=== PATIENT | male | born 1970 | race Caucasian/White ===

== ENCOUNTER 2024-05-07 08:24 | Day surgery (SDC) | payer MEDICAID, SELFPAY ==
[2024-04-17 11:18] VITALS: BMI 27.2
[2024-05-07 09:11] VITALS: BP 120/77; PULSE 87; RESP 18; TEMP 36.3; O2SAT 98
[2024-05-07] MEDS: LACTATED RINGERS 1000ML 1,000 ML 50 ML IV (09:59)
--- NOTE | 2024-05-07 10:05 | EXP.ANES.CKL ---
[facility] Disclaimer: The information contained in this section may have been updated after the patient was seen, as this information can be updated by other users. Medical History Asthma Psoriasis Irritable bowel syndrome (IBS) History of gastroesophageal reflux (GERD) Hyperlipidemia Hypertension ADHD Crohn's disease Surgical History H/O wrist surgery H/O shoulder surgery Family History Other Family history of cancer Family history of diabetes mellitus type II Family history of myocardial infarction Social History Smoking Status: Former smoker alcohol intake: current substance use type: denies use current occupational status: retired Travel in the last 8 weeks: None caffeine: No Have you lived/traveled outside US in past 30 days?: No Contact w/someone who lives/traveled outside US past 30 days?: No Exposure to someone with infectious disease in past 14 days?: No Do you have a fever (greater than 100.4 F or 38 C)?: No Have you tested positive for COVID-19: No Exposed to someone with COVID-19 in past 14 days?: No Do you have a sore throat?: No Do you have a cough?: No Do you have any weakness?: No Are you experiencing any nausea/vomitting?: No Do you have any diarrhea?: No Are you experiencing any unusual bleeding?: No Do you have any muscle aches/pain?: No Do you have any abdominal pain?: No Are you experiencing loss of taste or smell?: No [facility] Anesthesia Checklist Patient Identification Patient Identification: Arm Band Structural Data Admitted From: Home Planned Operative Procedure/s: Colonoscopy Consent for Planned Operative Procedure(s) Verified: Yes Verified Documents: Surgical Consent and History and Physical NPO Status Verified Time NPO: 00:00 Additional verifications Anesthesia Reactions: No Airway Assessment Mallampati Score:: Class II C-Spine Mobility Assessed: Yes TMJ Mobility Assessed: Yes Dentition: Good Dentition Neurological Assessment Level of Consciousness: Awake, Alert and Appropriate Anesthesia Plan Anesthesia Risk discussed: Yes Anesthesia Plan: Verified ASA Class: II Anesthesia Type: MAC
[2024-05-07 10:29] VITALS: O2SAT 100
--- NOTE | 2024-05-07 10:32 | P.HP_ITS ---
History of Present Illness *Admission Date: 05/07/24 *Reason for visit:: Diarrhea/urgency/left lower quadrant abdominal pain *History of present illness: Mr. Tavarez is a 54-year-old gentleman who is here for diagnostic colonoscopy secondary to diarrhea/urgency and left lower quadrant abdominal pain. The examination is deemed medically necessary for diagnostic colonoscopy. The patient has been seen, interviewed and examined prior to the procedure by both myself and the anesthesia provider. [facility] Disclaimer: The information contained in this section may have been updated after the patient was seen, as this information can be updated by other users. Medical History Asthma Psoriasis Irritable bowel syndrome (IBS) History of gastroesophageal reflux (GERD) Hyperlipidemia Hypertension ADHD Crohn's disease Surgical History H/O wrist surgery H/O shoulder surgery Family History Other Family history of cancer Family history of diabetes mellitus type II Family history of myocardial infarction Social History Smoking Status: Former smoker alcohol intake: current substance use type: denies use current occupational status: retired Travel in the last 8 weeks: None caffeine: No Have you lived/traveled outside US in past 30 days?: No Contact w/someone who lives/traveled outside US past 30 days?: No Exposure to someone with infectious disease in past 14 days?: No Do you have a fever (greater than 100.4 F or 38 C)?: No Have you tested positive for COVID-19: No Exposed to someone with COVID-19 in past 14 days?: No Do you have a sore throat?: No Do you have a cough?: No Do you have any weakness?: No Are you experiencing any nausea/vomitting?: No Do you have any diarrhea?: No Are you experiencing any unusual bleeding?: No Do you have any muscle aches/pain?: No Do you have any abdominal pain?: No Are you experiencing loss of taste or smell?: No Review of Systems Review of Systems Review of systems (narrative): Negative *Cardiovascular Comments: Negative *Gastrointestinal Comments: Negative *Genitourinary Comments: Negative *Musculoskeletal Comments: Negative *Neurologic Comments: Negative Meds Home Medications and Allergies Home Medications ?Medication ?Instructions ?Recorded ?Confirmed ?Type lisdexamfetamine 30 mg capsule 30 mg PO DAILY 03/04/24 05/07/24 History (Vyvanse) lisinopril 20 mg tablet (Zestril) 20 mg PO DAILY 03/04/24 05/07/24 History montelukast 10 mg tablet 10 mg PO DAILY 03/04/24 05/07/24 History (Singulair) rosuvastatin 20 mg tablet (Crestor) 20 mg PO DAILY 03/04/24 05/07/24 History fluoxetine 20 mg tablet 20 mg PO DAILY 04/17/24 05/07/24 History New Prescriptions to Start Prescriptions: Allergies Allergy/AdvReac Type Severity Reaction Status Date / Time No Known Allergies Allergy Verified 04/17/24 11:13 Exam Data for Last 24 hours Vital signs and Labs for Last 24 Hours: Temp Pulse Resp BP Pulse Ox O2 Del Method O2 Flow Rate 97.4 F L 87 18 120/77 98 Nasal Cannula 5 05/07/24 09:11 05/07/24 09:11 05/07/24 09:11 05/07/24 09:11 05/07/24 09:11 05/07/24 10:29 05/07/24 10:29 *Routine HEENT Exam Head: Present normocephalic Eye: Present EOMI and PERRL ENT: Present mucous membranes moist *Routine Neck Exam Neck: Present supple *Routine Respiratory Exam Respiratory: Present CTA bilaterally *Routine Cardiovascular Exam Cardiovascular: Present RRR *Routine Abdominal Exam Abdominal: Present soft and normoactive bowel sounds; Absent tenderness *Routine Rectal Exam Rectal:: deferred *Routine Genitalia Exam Genitalia:: deferred *Routine Extremities Exam Extremities: Absent cyanosis, clubbing or edema *Routine Skin Exam Skin: Present warm; Absent rash *Routine Neurological Exam Neurological: Present alert and oriented X3 Assessment and Plan *Assessment and plan (1) Chronic diarrhea: Status: Acute Category: Medical Code(s): K52.9 - Noninfective gastroenteritis and colitis, unspecified (2) Fecal urgency: Status: Acute Category: Medical Code(s): R15.2 - Fecal urgency (3) LLQ abdominal pain: Status: Acute Category: Medical Code(s): R10.32 - Left lower quadrant pain Plan A/P: 1. Diarrhea with fecal urgency and left lower quadrant abdominal pain is the preprocedural diagnosis. The patient will be anesthetized/sedated using MAC sedation. The patient has been seen and examined. Cardiac and lung assessment prior to the examination is stable. Proceed with planned diagnostic colonoscopy
--- NOTE | 2024-05-07 10:34 | HMH.PROCNOTE ---
[facility] Procedure Note Date: 05/07/24 Time: 10:49 Procedure Note:: Colonoscopy Procedure Report: Colonoscopy with cold snare polypectomy and cold biopsies Endoscopist: Major Howe II, MD Referring physician: MARISA Yañez Date of Procedure: May 07, 2024 Equipment: Olympus 190 variable stiffness pediatric colonoscope Sedation: MAC sedation Indication: Mr. Tavarez is a 54-year-old gentleman with chronic diarrhea and bowel urgency and intermittent left lower quadrant abdominal discomfort who is here for diagnostic colonoscopy. He was seen 4-1/2 years ago in [place] (local access clinic) having the pain and blood with his stool. He did a stool test and was told that it was consistent with Crohn's disease (probable fecal calprotectin) and he was placed on Entyvio samples for a month. He has had no further blood with his bowel movements. He has 2-3 loose bowel movements daily. He will occasionally use psyllium husk which helps. He does take Advil 2-3 times a week. He reports no gassiness or bloating. He has no rectal bleeding or mucus with his bowel movements. He reports no family history of colitis, Crohn's disease or colon cancer. This is his first colonoscopy and is performed for diagnostic purposes. Procedure: Prior to the procedure, a history and physical exam was performed, and patient's medications and allergies were reviewed. The risks, benefits and alternatives of the sedation and procedure were discussed with the patient. All questions were answered and informed consent was obtained. The patient was brought to the procedure room. Patient identification and proposed procedure were verified by the physician and the nurse. The patient was placed in a left lateral decubitus position and the scope was passed under direct vision. Throughout the procedure, the patient's blood pressure, pulse, and oxygen saturations were monitored continuously. The colonoscopy was accomplished without difficulty. The patient tolerated the procedure well. Findings: On digital rectal examination there was normal rectal tone. There were no external hemorrhoids. The prostate was 2+, smooth, soft, symmetric without nodules. The colonoscope was introduced through the anal canal to the rectum and advanced to the cecum. The ileocecal valve and appendiceal orifice were identified. The scope was advanced a short distance into the ileum which appeared grossly normal. The scope was then withdrawn into the colon. There was a very shallow small superficial ulcer on the ileocecal valve (NSAID ulcer/colopathy) and biopsies were obtained. The remaining cecum, ascending and transverse colon and mucosa were grossly normal. Cold biopsies were taken from the right colon to rule out microscopic colitis. There were 3 polyps (sigmoid x 2 (4 and 5 mm) and rectum x 1 (8 mm)). These were all removed via cold snare polypectomy. There were scattered diverticuli throughout the descending and sigmoid colon (LEFT colon). The rectum itself was normal. Upon retroflexion within the rectum there were grade 2 internal hemorrhoids. The preparation was excellent throughout with Tunas Preparation Score of 9. The cecal time was 12 minutes. Impression: 1. Colonic polyps x 3 2. Left-sided diverticulosis 3. Small and shallow superficial ulceration of ileocecal valve (highly characteristic of NSAID colopathy/ulcer) 4. Grade 2 internal hemorrhoids Plan: I will follow-up the polyp histology and recommend repeat surveillance colonoscopy again in 5 years if the polyps are adenomatous. I will follow-up the biopsies to rule out microscopic colitis. If the biopsies are normal, we may consider using Viberzi for IBS?D. I would encourage psyllium bulking fiber supplementation on a long-term daily maintenance basis.
[2024-05-07 10:51] VITALS: BP 112/73; PULSE 86; RESP 18; TEMP 36.2; O2SAT 97
[2024-05-07 11:01] VITALS: BP 99/47; PULSE 86; RESP 18; O2SAT 98
[2024-05-07 11:11] VITALS: BP 116/61; PULSE 78; RESP 18; O2SAT 98
[2024-05-07 11:24] VITALS: BP 116/66; PULSE 79; O2SAT 98
== END 2024-05-07 11:24 | disposition home or self-care (01) ==
PROVIDERS: PCP Nurse Practitioner Family; Visit Provider Internal Medicine Gastroenterology
PROC: 0DJD8ZZ Inspection of Lower Intestinal Tract, Via Natural or Artificial Opening Endoscopic (ICD-10-PCS; CPT 45378; principal; 2024-05-07 10:00)
DX: K52.9 Noninfective gastroenteritis and colitis, unspecified (principal); R15.2 Fecal urgency; R10.32 Left lower quadrant pain; K63.5 Polyp of colon; K57.30 Diverticulosis of large intestine without perforation or abscess without bleeding; K63.3 Ulcer of intestine
CPT/HCPCS: 45380; 45385; J7120

== ENCOUNTER 2024-09-13 01:34 | Observation (INO) | payer MEDICAID, SELFPAY ==
[2024-09-13] VITALS (11 sets, daily range): BP systolic 111–148; BP diastolic 64–123; PULSE 54–80; RESP 13–23; TEMP 36.6–36.8; O2SAT 94–97; BMI 25.7; BMI 24.3
--- NOTE | 2024-09-13 01:36 | ECG_ITS ---
APPROVED REPORT Exam: Resting ECG HR:64 bpm ECG Measurements Heart Rate 64 AXES OR 145 P 17 QRSd 141 QRS 48 QT 424 T 44 QTc 433 Conclusion SINUS RHYTHM INDETERMINATE AXIS RIGHT BUNDLE BRANCH BLOCK [120+ ms QRS DURATION, UPRIGHT V1, 40+ ms S IN I/aVL/V4/V5/V6] No STEMI Electronically signed by : BLAINE MCKEON, 09/14/2024 03:53:04
--- NOTE | 2024-09-13 01:48 | XR_ITS ---
PROCEDURE INFORMATION: Exam: XR Chest Exam date and time: 09/13/2024 1:55 AM Age: 54 years old Clinical indication: Sternal or substernal pain; Additional info: Chest pain TECHNIQUE: Imaging protocol: Radiologic exam of the chest. Views: 1 view. COMPARISON: No relevant prior studies available. FINDINGS: Lungs: Unremarkable. No consolidation. Pleural spaces: Unremarkable. No pleural effusion. No pneumothorax. Heart/Mediastinum: Unremarkable. No cardiomegaly. Bones/joints: Unremarkable. IMPRESSION: No acute findings.
[2024-09-13 02:00] LABS: Basophils # 0.1 K/mm3 (0-0.2); Basophils % 0.5 % (0.1-2.0); Eosinophils # 0.1 Kmm3 (0.0-0.4); Eosinophils % 0.8 % (0.1-12.0); Hematocrit 42.8 % (42.0-52.0); Hemoglobin 14.5 g/dL (14.1-18.0); Immature Granulocytes # 0.03 10^3uL; Immature Granulocytes % 0.3 %; Lymphocytes # 2.7 K/mm3 (0.7-4.5); Lymphocytes % 23.9 % (10-50); Mean Corpuscular HGB Conc 33.9 g/dL (31.8-35.4); Mean Corpuscular Hemoglobin 30.7 pg (27.0-31.2); Mean Corpuscular Volume 90.7 fl (80-94); Mean Platelet Volume 8.7 fl (7.4-10.4); Monocytes % 8.9 % (1.7-9.3); Neutrophils # 7.3 K/mm3 (1.8-7.8); Neutrophils % 65.6 % (37.0-80.0); Nucleated Red Blood Cells # 0 10^3/uL; Nucleated Red Blood Cells % 0 %; Platelet Count 375 K/mm3 (142-424); Red Blood Count 4.72 M/mm3 (4.60-6.20); Red Cell Distribution Width 12.3 % (11.5-17.5); Red Cell Distribution Width-SD 40.8 fL; White Blood Count 11.1 K/mm3 (4.8-10.8)
[2024-09-13 02:05] LABS: Alanine Aminotransferase 92 U/L (12-78); Albumin Level 4.8 g/dl (3.5-5.0); Albumin/Globulin Ratio 1.7 (1.1-1.8); Alkaline Phosphatase 87 U/L (38-126); Anion Gap 11.6 mEq/L (5-15); Aspartate Amino Transferase 102 U/L (17-59); Blood Urea Nitrogen 16 mg/dl (9-20); Calcium 10.3 mg/dl (8.4-10.2); Carbon Dioxide 28 mmol/L (22.0-30.0); Chloride 98 mmol/L (98-107); Creatinine Clearance Estimated 111 mL/min (50-200); Estimated Glomerular Filt Rate 88 ml/min (>60); GFR (African American) 106 ML/MIN (>60); Globulin 2.8 g/dL (1.3-3.2); Glucose 114 mg/dl (74-100); Potassium 3.6 mmoL/L (3.5-5.1); Sodium 134 mmol/L (136-145); Total Protein,Serum 7.6 g/dl (6.3-8.2)
[2024-09-13] MEDS: NITROGLYCERIN 0.4MG SL TABLET 0.4 MG SL (02:14)
[2024-09-13] MEDS: ASPIRIN 81MG CHEWABLE TABLET 324 MG PO (02:14)
[2024-09-13 02:17] LABS: Troponin I < 0.01 ng/ml (0.00-0.034)
--- NOTE | 2024-09-13 02:21 | HMH.EDCP ---
Discharge Plan Disposition Patient Disposition: Admitted Prescriptions Prescriptions: No Action montelukast [Singulair] 10 mg tablet 10 mg PO DAILY lisinopril [Zestril] 20 mg tablet 20 mg PO DAILY lisdexamfetamine [Vyvanse] 30 mg capsule 30 mg PO DAILY rosuvastatin [Crestor] 20 mg tablet 20 mg PO DAILY dicyclomine 10 mg capsule 10 mg PO TID Qty: 90 12RF Rx Instructions: Please take 1 capsule p.o. 3 times daily fluoxetine 20 mg Tablet 20 mg PO DAILY Referrals Follow up/Referrals: Provider,Referral, [Primary Care Provider, Medical] - See instructions Clinical Impressions Clinical Impression: Chest pain Print Language Print Language: Korean Discharge ED Provider: Cesario Kruse General Chief Complaint: Chest Pain Stated Complaint: Chest Pain Time Seen by Provider: 09/13/24 02:16 Mode of Arrival: Ambulatory Source of Information: Patient Description of Symptoms (Recalled from ER Triage Doc. by RN): pt reports midsternal chest pain that began 3 hours ago,pt reports that it is a burning sensation and feels like pressure. pt reports he thought it was acid reflux and tried to treat it at home with prescribed stomach medicine without relief. History of Present Illness HPI narrative: 54-year-old male presents to the ER complaining of midsternal chest pain beginning approximately 2 to 3 hours prior to arrival. Patient reports a burning sensation that feels tight. He states he thought it was acid reflux and took Gas-X without relief. He also took 2 aspirin prior to arrival. Patient states he recently lost his dad to an HI and his mom had A-fib. He self-reports being a hypochondriac and states he is very worried about something serious potentially happening. Patient denies any vomiting. He has no headache or dizziness, no radiation of pain, no other complaints or concerns. No personal cardiac history. Related Data Home Medications ?Medication ?Instructions ?Recorded ?Confirmed lisdexamfetamine 30 mg capsule 30 mg PO DAILY 03/04/24 05/07/24 (Vyvanse) lisinopril 20 mg tablet (Zestril) 20 mg PO DAILY 03/04/24 05/07/24 montelukast 10 mg tablet 10 mg PO DAILY 03/04/24 05/07/24 (Singulair) rosuvastatin 20 mg tablet (Crestor) 20 mg PO DAILY 03/04/24 05/07/24 fluoxetine 20 mg tablet 20 mg PO DAILY 04/17/24 05/07/24 Previous Rx's ?Medication ?Instructions ?Recorded dicyclomine 10 mg capsule 10 mg PO TID #90 caps 05/12/24 Allergies Allergy/AdvReac Type Severity Reaction Status Date / Time No Known Allergies Allergy Verified 04/17/24 11:13 [facility] Disclaimer: The information contained in this section may have been updated after the patient was seen, as this information can be updated by other users. Medical History (Updated 09/13/24 @ 04:46 by Cesario Kruse MD) Asthma Psoriasis Irritable bowel syndrome (IBS) History of gastroesophageal reflux (GERD) Hyperlipidemia Hypertension ADHD Crohn's disease Surgical History H/O wrist surgery H/O shoulder surgery Family History Other Family history of cancer Family history of diabetes mellitus type II Family history of myocardial infarction Social History Smoking Status: Never smoker alcohol intake: current substance use type: denies use current occupational status: retired Travel in the last 8 weeks?: None caffeine: No Have you lived/traveled outside US in past 30 days?: No Contact w/someone who lives/traveled outside US past 30 days?: No Exposure to someone with infectious disease in past 14 days?: No Do you have a fever (greater than 100.4 F or 38 C)?: No Have you tested positive for COVID-19?: No Exposed to someone with COVID-19 in past 14 days?: No Do you have a sore throat?: No Do you have a cough?: No Do you have any weakness?: No Do you have any diarrhea?: No Are you experiencing any unusual bleeding?: No Do you have any muscle aches/pain?: No Do you have any abdominal pain?: No Are you experiencing loss of taste or smell?: No ROS Obtained: Yes Systems reviewed as appropriate & no additional complaints except as documented per HPI Physical Exam General General appearance: alert and in no apparent distress Head Head exam: atraumatic and normocephalic Eye Eye exam: Present PERRL and EOMI ENT ENT exam: Present mucous membranes moist Neck Neck exam: Present normal inspection and full ROM Chest Chest inspection: Present symmetric chest wall rise; Absent tenderness Respiratory Respiratory exam: Present normal lung sounds bilaterally; Absent respiratory distress, wheezes or stridor Cardiovascular Cardiovascular exam: Present regular rate and normal rhythm Abdominal Exam Abdominal exam: Present soft; Absent distention or tenderness Extremities Exam Extremities exam: Present full ROM; Absent edema Neurological Exam Neurological exam: Present alert and oriented X3; Absent motor sensory deficit Psychiatric Psychiatric exam: Present normal affect and normal mood Skin Skin exam: Present warm and dry HEART Score HEART Score HEART Score assessment performed?: Yes History (anamnesis): Slightly suspicious ECG: Non-specific disturbance Age: 45-65 years Risk factors: 1-2 risk factors Troponin: </= normal limit HEART Score: 3 Critical Care Critical Care Time Critical Care Time: No Medical Decision Making Medical Records Medical records reviewed: Yes I reviewed the patient's medical records. Champ Inquiry Pt receiving controlled substance: No Vital Signs Vital Signs: 09/13/24 01:44 09/13/24 01:46 09/13/24 02:01 Temperature 98.1 F Temperature Source Temporal Artery Scan Pulse Rate 54 L 56 L Pulse Rate [Right] 75 Respiratory Rate 20 16 13 Blood Pressure 148/123 H 111/79 Blood Pressure [Right Arm] 148/123 H Blood Pressure Mean [Right Arm] 131 02 Sat by Pulse Oximetry 94 L 97 96 Oxygen Delivery Method Room Air 09/13/24 02:31 Temperature Temperature Source Pulse Rate 62 Pulse Rate [Right] Respiratory Rate 23 Blood Pressure 135/82 Blood Pressure [Right Arm] Blood Pressure Mean [Right Arm] 02 Sat by Pulse Oximetry 95 Oxygen Delivery Method Lab Data Labs: Lab Results 09/13/24 01:42: WBC 11.1 H, RBC 4.72, Hgb 14.5, Hct 42.8, MCV 90.7, MCH 30.7, MCHC 33.9, RDW 12.3, Plt Count 375, MPV 8.7, Neut % (Auto) 65.6, Lymph % (Auto) 23.9, Loving % (Auto) 8.9, Eos % (Auto) 0.8, Baso % (Auto) 0.5, Neut # (Auto) 7.3, Lymph # (Auto) 2.7, Loving # (Auto) 1.0, Eos # (Auto) 0.1, Baso # (Auto) 0.1, D-Dimer 0.50, Sodium 134 L, Potassium 3.6, Chloride 98, Carbon Dioxide 28, Anion Gap 11.6, BUN 16, Creatinine 0.90, Estimated Creat Clear 111, Estimated GFR 88, Est GFR ( Amer) 106, Glucose 114 H, Calcium 10.3 H, Total Bilirubin 1.0, AST 102 H, ALT 92 H, Alkaline Phosphatase 87, Troponin I < 0.01, Total Protein 7.6, Albumin 4.8, Globulin 2.8, Albumin/Globulin Ratio 1.7 09/13/24 01:42 09/13/24 01:42 Response Orders (Tests/Meds): ED MEDICATIONS Generic Name Dose Route Start Last Admin Trade Name Freq PRN Reason Stop Dose Admin Nitroglycerin 0.4 mg 09/13/24 01:48 09/13/24 02:14 Nitroglycerin 0.4mg Sl Tablet SL 09/14/24 01:48 0.4 mg Q5MINP PRN Administration Chest Pain Discontinued Medications Generic Name Dose Route Start Last Admin Trade Name Freq PRN Reason Stop Dose Admin Aspirin 324 mg 09/13/24 01:48 09/13/24 02:14 Aspirin 81mg Chewable Tablet PO 09/13/24 01:49 324 mg ONCE ONE Administration Belladonna Alkaloids 60 ml 09/13/24 02:20 09/13/24 02:41 Belladonna Alkaloids 60 Ml Ml PO 09/13/24 02:21 60 ml ONCE ONE Administration Morphine Sulfate 4 mg 09/13/24 03:55 09/13/24 04:00 Morphine 4mg/Ml Syringe IV 09/13/24 03:56 4 mg ONCE ONE Administration Ondansetron HCl 4 mg 09/13/24 03:55 09/13/24 03:59 Ondansetron 4mg/2ml Vial IV 09/13/24 03:56 4 mg ONCE ONE Administration ORDERS Category Date Time Status XR chest portable Stat Exams 09/13/24 01:48 Completed Complete Blood Count Auto Diff Stat Lab 09/13/24 01:42 Completed Comprehensive Metabolic Panel Stat Lab 09/13/24 01:42 Completed D-Dimer Stat Lab 09/13/24 01:42 Completed HIV Combo Stat Lab 09/13/24 01:42 Received Hepatitis C Ab Qual. W/ RFX Stat Lab 09/13/24 01:42 Received Lipase Stat Lab 09/13/24 01:42 Received Troponin I Q3H Lab 09/13/24 05:00 Ordered Troponin I Q3H Lab 09/13/24 08:00 Ordered Troponin I Stat Lab 09/13/24 01:42 Completed MDM Narrative Medical Decision Narrative: In summary, this 54-year-old male presents to the emergency department today with substernal chest pain. On initial evaluation patient is hemodynamically stable, afebrile, GCS 15, chest pain is not reproducible on exam, cardiopulmonary exam benign, no peripheral edema, remainder of exam benign. Differential diagnosis includes but is not limited to ACS, PE, esophageal spasm, patient was concerned about reflux which is a possibility, also considered pneumothorax, electrolyte abnormalities, among others. Based on these concerns, I ordered serum labs, cardiac workup, chest x-ray. ECG personally interpreted demonstrates sinus rhythm, indeterminate axis, rate 64, normal WI and QTc, right bundle maurice block, trace ST abnormalities in the inferior leads but no STEMI. Patient received aspirin for treatment. He had already taken up to 81 mg aspirin at home so he only received 2 more. Nitro was also ordered. He was still concerned for reflux so GI cocktail administered Labs personally reviewed demonstrate mild leukocytosis WBC 11.1 nonspecific nonactionable, no anemia, normal platelets, D-dimer normal at 0.5, by years criteria PE is excluded, CTA PE not indicated, CMP nonactionable, patient does have slight elevation of AST and ALT but normal alkaline phosphatase. He has no right upper quadrant tenderness and I do not believe this represents acute hepatitis or biliary pathology. Initial troponin undetectably low less than 0.01 reassuring in the setting of nonischemic ECG. Chest x-ray personally provided does not demonstrate acute thoracic abnormality, see radiology read for final interpretation. Patient placed in the ED observation at 0230 for serial troponins to rule out evolving HI appropriate unnecessary admission. Patient remains on cardiac cath lab manager and has been frequently reassessed while in observation. On reassessment patient continues to have chest pain. He still describes it as 7 out of 10, nonradiating. He states the GI cocktail numbed his throat but did not do anything for the chest pain and the nitro did not change his pain either. Repeat ECG personally interpreted demonstrates sinus rhythm, reat 60, indeterminate axis, right bundle branch block, no STEMI. No dynamic changes. With his concerning family history and persistent chest pain without relief, he is receiving morphine but I believe he requires admission to the hospital. Dr. Pierre was paged multiple times but did not call back. Patient has reassuring ECG and workup thus far and I have very low suspicion for acute cardiac pathology but do believe continued monitoring is indicated. I am not going to start the patient on therapeutic anticoagulation at this time since he is not demonstrating dynamic changes on ECG or troponin elevation. I discussed this case with the hospitalist including patient's failure of multiple medications in the ER and his persistent pain but my inability to get a hold of cardiology at this time. Hospitalist graciously excepted the patient for admission. Patient admitted in stable condition. Total time in ED observation: 2 hours 15 minutes
[2024-09-13] MEDS: BELLADONNA ALKALOIDS 60 ML ML PO (02:41)
--- NOTE | 2024-09-13 03:58 | ECG_ITS ---
APPROVED REPORT Exam: Resting ECG HR:60 bpm ECG Measurements Heart Rate 60 AXES TN 149 P 30 QRSd 141 QRS 50 QT 446 T 30 QTc 447 Conclusion SINUS RHYTHM INDETERMINATE AXIS RIGHT BUNDLE BRANCH BLOCK [120+ ms QRS DURATION, UPRIGHT V1, 40+ ms S IN I/aVL/V4/V5/V6] No STEMI Electronically signed by : BLAINE MCKEON, 09/14/2024 03:53:30
[2024-09-13] MEDS: ONDANSETRON 4MG/2ML VIAL 4 MG IV (03:59)
[2024-09-13] MEDS: MORPHINE 4MG/ML SYRINGE 4 MG IV (04:00)
--- NOTE | 2024-09-13 05:18 | P.HP_ITS ---
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 Patient presented with epigastric pain with elevated lipase, consistent with acute pancreatitis in the setting of alcohol use disorder and elevated calcium in setting of Tums. Will continue IV fluids and advance diet as tolerated. Follow-up RUQ ultrasound and ECHO. History of Present Illness *Admission Date: 09/13/24 *Reason for visit:: Atypical chest pain *History of present illness: Mr. Tavarez is a 54-year-old male, who only in our computer system is had a colonoscopy and really everything was benign, has come in for atypical chest pain at the lower sternum area, denies nausea. He has been worked up in the ER his first troponins were normal. Second ones have just been drawn. Family history significant for a father who was recently from a cardiac cause and mother had A-fib and she has . Patient is being seen for anxiety and for grief. He has had 1 parent in March stepfather in May and another parent in June of this year. He is on medication for this and is not suicidal. He states he just has anxiety and depression about having all this happen at the same time. He does have a lot of family members around he has an ex- and son in [place] but here is his uncles sisters and brothers are in the area. He states he has plenty of family support After talking with the ER physician due to this atypical chest pain. Will do troponins to rule out any cardiac event. Per labs noting elevated liver functions we will add a GGT. As the patient has had a GI cocktail and did not have any results from it.. Will also add IV Pepcid while the patient is here. Will wait for the results of all labs for further planning hopefully thing we remain negative will be able to discharge the patient and he can follow-up with cardiology. And then if this was to continue and cardiac is ruled out to see gastroenterology [facility] Disclaimer: The information contained in this section may have been updated after the patient was seen, as this information can be updated by other users. Medical History (Updated 09/13/24 @ 06:54 by Ernesto Peña APRN) Asthma Psoriasis Irritable bowel syndrome (IBS) History of gastroesophageal reflux (GERD) Hyperlipidemia Hypertension ADHD Crohn's disease Surgical History H/O wrist surgery H/O shoulder surgery Family History Other Family history of cancer Family history of diabetes mellitus type II Family history of myocardial infarction Social History (Updated 09/13/24 @ 05:22 by Ernesto Peña APRN) Smoking Status: Never smoker alcohol intake: current counseling given: No counseling provided: reduce to 2 or less/day substance use type: denies use current occupational status: retired Travel in the last 8 weeks?: None caffeine: No Have you lived/traveled outside US in past 30 days?: No Contact w/someone who lives/traveled outside US past 30 days?: No Exposure to someone with infectious disease in past 14 days?: No Do you have a fever (greater than 100.4 F or 38 C)?: No Have you tested positive for COVID-19?: No Exposed to someone with COVID-19 in past 14 days?: No Do you have a sore throat?: No Do you have a cough?: No Do you have any weakness?: No Do you have any diarrhea?: No Are you experiencing any unusual bleeding?: No Do you have any muscle aches/pain?: No Do you have any abdominal pain?: No Are you experiencing loss of taste or smell?: No Other Medical History Have you received the Flu Vaccine for this season: No Have you received the Pneumonia Vaccine: No Review of Systems Review of Systems Review of systems:: pertinent systems reviewed and negative unless documented below Constitutional Constitutional: Reports as per HPI Comments: States is anxious and is seeing medical providers for this and is on medication ENT Ears, Nose, Mouth, and Throat: Reports as per HPI *Cardiovascular Cardiovascular: Reports as per HPI and Reports chest pain Comments: Denies shortness of breath or dyspnea, nonradiating pain staying at the lower sternum/epigastric area *Gastrointestinal Gastrointestinal: Reports as per HPI Comments: Stated he had not any problem with his bowels bladder. On his colonoscopy he also knows he only had a few polyps but that everything was basically normal *Musculoskeletal Musculoskeletal: Reports as per HPI Integumentary/Breasts Skin/Breast: Reports as per HPI *Neurologic Neurologic: Reports as per HPI Psychiatric Psychiatric: Reports as per HPI, Reports anxiety and Reports depression Comments: In process of grief, due to loss of parents in the last 7 months Hematologic/Lymphatic Hematologic/Lymphatic: Reports as per HPI Allergic/Immunologic Allergic/Immunologic: Reports as per HPI Meds Home Medications and Allergies Home Medications ?Medication ?Instructions ?Recorded ?Confirmed ?Type lisdexamfetamine 30 mg capsule 30 mg PO DAILY 03/04/24 05/07/24 History (Vyvanse) lisinopril 20 mg tablet (Zestril) 20 mg PO DAILY 03/0405/07/24 History montelukast 10 mg tablet 10 mg PO DAILY 03/04/2409/23 History (Singulair) rosuvastatin 20 mg tablet (Crestor) 20 mg PO DAILY 07/2305/07/24 History fluoxetine 20 mg tablet 20 mg PO DAILY 04/17/2409/23 History dicyclomine 10 mg capsule 10 mg PO TID #90 caps Rx New Prescriptions to Start Prescriptions: Allergies Allergy/AdvReac Type Severity Reaction Status Date / Time No Known Allergies Allergy Verified 04/17/24 11:13 Exam Data for Last 24 hours Vital signs and Labs for Last 24 Hours: Temp Pulse Resp BP Pulse Ox O2 Del Method 98.1 F 62 23 135/82 95 Room Air 09/13/24 01:44 09/13/24 02:31 09/13/24 02:31 09/13/24 02:31 09/13/24 02:31 09/13/24 01:44 Laboratory Results - last 24 hr 09/13/24 01:42: WBC 11.1 H, RBC 4.72, Hgb 14.5, Hct 42.8, MCV 90.7, MCH 30.7, MCHC 33.9, RDW 12.3, Plt Count 375, MPV 8.7, Neut % (Auto) 65.6, Lymph % (Auto) 23.9, [place] % (Auto) 8.9, Eos % (Auto) 0.8, Baso % (Auto) 0.5, Neut # (Auto) 7.3, Lymph # (Auto) 2.7, [place] # (Auto) 1.0, Eos # (Auto) 0.1, Baso # (Auto) 0.1, D- Dimer 0.50, Sodium 134 L, Potassium 3.6, Chloride 98, Carbon Dioxide 28, Anion Gap 11.6, BUN 16, Creatinine 0.90, Estimated Creat Clear 111, Estimated GFR 88, Est GFR ( Amer) 106, Glucose 114 H, Calcium 10.3 H, Total Bilirubin 1.0, AST 102 H, ALT 92 H, Alkaline Phosphatase 87, Troponin I < 0.01, Total Protein 7.6, Albumin 4.8, Globulin 2.8, Albumin/Globulin Ratio 1.7 I & O for Last 24 hours: Intake & Output 09/10/24 09/11/24 09/12/24 09/13/24 05:59 05:59 05:59 05:59 Weight 185 lb Constitutional Constitutional: no acute distress *Routine HEENT Exam Head: Present normocephalic and atraumatic Eye: Present EOMI and PERRL ENT: Present mucous membranes moist *Routine Neck Exam Neck: Present supple and full ROM *Routine Respiratory Exam Respiratory: Present normal respiratory effort, able to speak in complete sentences and symmetric chest movement *Routine Cardiovascular Exam Cardiovascular: Present RRR, Normal S1 and Normal S2 Comments: No edema *Routine Abdominal Exam Abdominal: Present soft and normoactive bowel sounds *Routine Rectal Exam Rectal:: deferred *Routine Genitalia Exam Genitalia:: deferred *Routine Extremities Exam Extremities: Present full ROM and pulses intact Comments: No abnormalities of arms or legs was observed *Routine Skin Exam Skin: Present intact, dry, warm and normal turgor Comments: Skin color normal *Routine Neurological Exam Neurological: Present alert, oriented X3, CN II-XII intact, vision grossly intact and hearing grossly intact Routine Psychiatric Exam Psychiatric: Present normal affect, normal thought process, cooperative, good insight, good judgment, anxious and manic Comments: Patient knows that he has anxiety, little bit of manic phase, but able to describe his discomfort in detail to his upper abdomen lower sternum H&P: Result Impressions 1. Atypical chest pain rule out cardiac event performing troponin 2. Elevated liver function labs, question gastric versus gallbladder involvement, patient does drink alcohol 3. Anxiety and dysfunctional grieving related to the loss of 3 close relatives in the last 7 months Assessment and Plan *Assessment and plan (1) Chest pain: Status: Acute Qualifiers: Chest pain type: unspecified Qualified Code(s): R07.9 - Chest pain, unspecified Category: Medical Code(s): R07.9 - Chest pain, unspecified (2) LLQ abdominal pain: Status: Acute Category: Medical Code(s): R10.32 - Left lower quadrant pain (3) Anxiety: Status: Acute Category: Medical Code(s): F41.9 - Anxiety disorder, unspecified (4) Dysfunctional grieving: Status: Acute Category: Medical Code(s): F43.21 - Adjustment disorder with depressed mood (5) Alcohol consumption of more than two drinks per day: Status: Acute Category: Social Hx Code(s): Z78.9 - Other specified health status (6) Pancreatitis: Status: Acute Qualifiers: Chronicity: acute Pancreatitis type: unspecified pancreatitis type Acute pancreatitis complication: unspecified Qualified Code(s): K85.90 - Acute pancreatitis without necrosis or infection, unspecified Category: Medical Code(s): K85.90 - Acute pancreatitis without necrosis or infection, unspecified Plan 1. The ER provider talked with Dr. Pierre and decided because of his atypical manner and the fact that both parents had cardiac issues, we will go ahead and admit the patient to the floor and do serial troponins., Noting an elevated liver function test will also add in a GGT looking for any cholangitis. Area of the pain could be cardiac with the symptoms that he had with no improvement with a GI cocktail. Will add IV Pepcid in the short-term but will allow him to eat come lunch if he has not been discharged holding breakfast at this time 2. Labs have returned and find that his lipase is quite elevated. Will keep him n.p.o. at this time.
[2024-09-13 05:24] LABS: HIV Combo NEGATIVE (Negative)
[2024-09-13 05:27] LABS: Gamma Glutamyl Transpeptidase 111 U/L (15-73)
[2024-09-13 05:32] LABS: Hepatitis C Ab Qual. W/ RFX NEGATIVE (Negative)
[2024-09-13 05:46] LABS: Troponin I < 0.01 ng/ml (0.00-0.034)
[2024-09-13 06:43] LABS: Lipase 24458 U/L (23-300)
[2024-09-13] MEDS: LACTATED RINGERS 1000ML 1,000 ML 100 ML IV ×2 (08:21→20:24)
[2024-09-13 08:56] LABS: Troponin I < 0.01 ng/ml (0.00-0.034)
[2024-09-13 11:00] LABS: POC Glucose,Bedside 101 (70-110)
[2024-09-13 15:29] LABS: POC Glucose,Bedside 84 (70-110)
[2024-09-13] MEDS: PANTOPRAZOLE 40MG TABLET 40 MG PO (20:24)
--- NOTE | 2024-09-13 22:59 | P.EN_ITS ---
Feliberto Tavarez is a 54-year-old male who presented with chest/epigastric pain and was admitted for acute pancreatitis. Pancreatitis seems to be related to alcohol use disorder, hypercalcemia in the setting of Tums for GERD. Symptoms have improved, continue IV fluids and advance diet as tolerated. Started low residue diet. Patient is motivated to decrease alcohol intake. Started Pr otonix for GERD. Follow-up RUQ ultrasound to rule out gallstone pathology, ECHO to rule out cardiac etiology for chest pain. Patient is a current smoker. N.p.o. at midnight for RUQ ultrasound.
[2024-09-14] VITALS: BP 131/78; PULSE 70; PULSE 71; RESP 16; TEMP 36.8; O2SAT 98
[2024-09-14 04:00] VITALS: BP 111/52; PULSE 57; PULSE 60; RESP 16; TEMP 36.4; O2SAT 97; BMI 24.9
[2024-09-14 05:00] VITALS: PULSE 60
--- NOTE | 2024-09-14 05:43 | PC.NURSE ---
Pt is A&Ox4. Pt denies abdominal pain. Pt has rested well this shift and is tolerating a bland diet well at this time. Pt has been NPO since MD for a .
--- NOTE | 2024-09-14 06:00 | US_ITS ---
FINAL REPORT CLINICAL HISTORY: Pancreatitis COMPARISON: None FINDINGS: Sonographic images of the right upper quadrant were obtained. The pancreas is partially obscured. There is fatty infiltration of the liver. Sludge is noted in the gallbladder. There is no evidence of biliary ductal dilatation.The common duct measures 4mm. Limited images of the right kidney are unremarkable. IMPRESSION: Fatty liver. Sludge in the gallbladder. Reviewed, Interpreted and Dictated by Onofre Ventura MD Transcribed by Alice Cano Authenticated and [facility]
--- NOTE | 2024-09-14 06:00 | CA_ITS ---
APPROVED REPORT EXAM: Comprehensive 2D, Doppler, and color-flow Echocardiogram Conservation Specialist: Lyssa Paredes CRT Ht: 5 ft 11 in Wt: 176lbs BSA: 2.00 BP: 135/82 mmHg Indications: Chest Pain M-Mode Dimensions RVDd 3.12 cm (0.9-2.6) LA Diam 3.35 cm (1.9-4.0) LVDd 4.37 cm (3.5-5.7) LVDs 2.79 cm (3.5-5.7) IVSd 1.33 cm (0.6-1.1) PWd 0.64 cm (0.6-1.1) EF (Teich) 66.00% FS 36.20% EDV (Teich) 86.30 mL TAPSE 2.42 (<1.7) ESV (Teich) 29.30 mL LV Diastology E Decel Time 233 (160-240 msec) E/A Ratio 1.20 MED A' 11.70 cm/s LAT A' 10.80 cm/s Aortic Valve AO Peak GR. 4.80 mmHg Mitral Valve MV A Velocity 64.0 (40-130 cm/s) E/A Ratio 1.20 Pulmonary Valve PV Peak Velocity 163.0 (50-150 cm/s) Tricuspid Valve TR P. Velocity 256.00 cm/s RAP Estimate 10.00 mmHg RVSP 36.30 mmHg Left Ventricle The left ventricle is normal size. The left ventricular systolic function is normal. The left ventricular ejection fraction is within the normal range. There is increased LV wall thickness. There is normal LV segmental wall motion. The left ventricular diastolic function is normal. LVEF is 55%. Right Ventricle Right ventricle is mildly dilated. The right ventricular systolic function is normal. Atria The left atrium size is normal. The right atrium size is normal. There is no Doppler evidence of interatrial shunt. Aortic Valve The aortic valve is mildly thickened. There is no aortic valvular stenosis. Trace aortic regurgitation. Mitral Valve The mitral valve is normal in structure. No evidence of mitral valve stenosis. Mild mitral regurgitation. Tricuspid Valve Tricuspid valve is grossly normal in structure and function. Mild tricuspid regurgitation. RVSP 25-20 mmHg. Pulmonic Valve The pulmonary valve is normal in structure. Trace pulmonic regurgitation. Great Vessels The aortic root is normal in size. IVC is normal in size and collapses >50% with inspiration. Pericardium There is no pericardial effusion. Other Information Study Quality: Fair Conclusion Normal biventricular systolic function. Mild RV dilation. Mild MR, mild TR. Electronically signed by : Kacy Dumas MD 09/14/2024 11:35:44
[2024-09-14 07:13] LABS: Albumin Level 3.8 g/dl (3.5-5.0); Chloride 104 mmol/L (98-107); Sodium 136 mmol/L (136-145)
[2024-09-14 07:14] LABS: Potassium 4.3 mmoL/L (3.5-5.1)
[2024-09-14 07:15] LABS: Basophils % 0.6 % (0.1-2.0); Eosinophils # 0.2 Kmm3 (0.0-0.4); Eosinophils % 3.3 % (0.1-12.0); Hemoglobin 12.4 g/dL (14.1-18.0); Immature Granulocytes # 0.02 10^3uL; Immature Granulocytes % 0.3 %; Lymphocytes # 2.8 K/mm3 (0.7-4.5); Lymphocytes % 39.5 % (10-50); Mean Corpuscular HGB Conc 32.6 g/dL (31.8-35.4); Mean Corpuscular Hemoglobin 30.5 pg (27.0-31.2); Mean Corpuscular Volume 93.4 fl (80-94); Mean Platelet Volume 9.1 fl (7.4-10.4); Monocytes # 0.5 K/mm3 (0.1-1.0); Monocytes % 7.5 % (1.7-9.3); Neutrophils # 3.5 K/mm3 (1.8-7.8); Neutrophils % 48.8 % (37.0-80.0); Nucleated Red Blood Cells # 0 10^3/uL; Nucleated Red Blood Cells % 0 %; Platelet Count 299 K/mm3 (142-424); Red Blood Count 4.07 M/mm3 (4.60-6.20); Red Cell Distribution Width 12.5 % (11.5-17.5); Red Cell Distribution Width-SD 43.4 fL; White Blood Count 7.2 K/mm3 (4.8-10.8)
[2024-09-14 07:16] LABS: Alanine Aminotransferase 66 U/L (12-78); Albumin/Globulin Ratio 1.6 (1.1-1.8); Alkaline Phosphatase 66 U/L (38-126); Anion Gap 7.3 mEq/L (5-15); Aspartate Amino Transferase 58 U/L (17-59); Bilirubin,Total 0.8 mg/dl (0.2-1.3); Blood Urea Nitrogen 7 mg/dl (9-20); Calcium 8.7 mg/dl (8.4-10.2); Carbon Dioxide 29 mmol/L (22.0-30.0); Creatinine Clearance Estimated 123 mL/min (50-200); Estimated Glomerular Filt Rate 101 ml/min (>60); GFR (African American) 122 ML/MIN (>60); Globulin 2.4 g/dL (1.3-3.2); Glucose 101 mg/dl (74-100); Total Protein,Serum 6.2 g/dl (6.3-8.2)
[2024-09-14 08:00] VITALS: BP 136/86; PULSE 55; PULSE 60; RESP 16; TEMP 36.6; O2SAT 96
[2024-09-14 08:16] LABS: Phosphorous 3.7 mg/dl (2.5-4.5)
[2024-09-14 09:48] LABS: Lipase 478 U/L (23-300)
--- NOTE | 2024-09-14 09:52 | EXP.DC.SUM ---
General Admission date:: 09/13/24 HPI HPI HPI: Mr. Tavarez is a 54-year-old male, who only in our computer system is had a colonoscopy and really everything was benign, has come in for atypical chest pain at the lower sternum area, denies nausea. He has been worked up in the ER his first troponins were normal. Second ones have just been drawn. Family history significant for a father who was recently from a cardiac cause and mother had A-fib and she has . Patient is being seen for anxiety and for grief. He has had 1 parent in March stepfather in May and another parent in June of this year. He is on medication for this and is not suicidal. He states he just has anxiety and depression about having all this happen at the same time. He does have a lot of family members around he has an ex- and son in [place] but here is his uncles sisters and brothers are in the area. He states he has plenty of family support After talking with the ER physician due to this atypical chest pain. Will do troponins to rule out any cardiac event. Per labs noting elevated liver functions we will add a GGT. As the patient has had a GI cocktail and did not have any results from it.. Will also add IV Pepcid while the patient is here. Will wait for the results of all labs for further planning hopefully thing we remain negative will be able to discharge the patient and he can follow-up with cardiology. And then if this was to continue and cardiac is ruled out to see gastroenterology Exam Data for Last 24 hours Vital signs and Labs for Last 24 Hours: Temp Pulse Resp BP Pulse Ox O2 Del Method 97.9 F 55 L 16 136/86 96 Room Air 09/14/24 08:00 09/14/24 08:00 09/14/24 08:00 09/14/24 08:00 09/14/24 08:00 09/14/24 09:00 Laboratory Results - last 24 hr 09/13/24 10:53: POC Glucose 101 09/13/24 15:22: POC Glucose 84 09/14/24 05:48: WBC 7.2 D, RBC 4.07 L, Hgb 12.4 L, Hct 38.0 L, MCV 93.4, MCH 30.5, MCHC 32.6, RDW 12.5, Plt Count 299, MPV 9.1, Neut % (Auto) 48.8, Lymph % (Auto) 39.5, [place] % (Auto) 7.5, Eos % (Auto) 3.3, Baso % (Auto) 0.6, Neut # (Auto) 3.5, Lymph # (Auto) 2.8, [place] # (Auto) 0.5, Eos # (Auto) 0.2, Baso # (Auto) 0.0, Sodium 136, Potassium 4.3, Chloride 104, Carbon Dioxide 29, Anion Gap 7.3, BUN 7 L D, Creatinine 0.80, Estimated Creat Clear 123, Estimated GFR 101, Est GFR ( Amer) 122, Glucose 101 H, Calcium 8.7, Phosphorus 3.7, Magnesium 2.0, Total Bilirubin 0.8, AST 58 D, ALT 66 D, Alkaline Phosphatase 66, Total Protein 6.2 L, Albumin 3.8 D, Globulin 2.4, Albumin/Globulin Ratio 1.6 I & O for Last 24 hours: Intake & Output 09/11/24 09/12/24 09/13/24 09/14/24 23:59 23:59 23:59 23:59 Intake Total 2620 / 3600 980 / 980 Output Total 0 / 0 2 / 2 Balance 2620 / 3600 978 / 978 Weight 80.087 kg 82.554 kg Results Data Completed and Pending Labs on day of discharge: Labs from last 24 hours 09/14/24 09/13/24 09/13/24 05:48 15:22 10:53 WBC 7.2 D RBC 4.07 L Hgb 12.4 L Hct 38.0 L MCV 93.4 MCH 30.5 MCHC 32.6 RDW 12.5 Plt Count 299 MPV 9.1 Neut % (Auto) 48.8 Lymph % (Auto) 39.5 [place] % (Auto) 7.5 Eos % (Auto) 3.3 Baso % (Auto) 0.6 Neut # (Auto) 3.5 Lymph # (Auto) 2.8 [place] # (Auto) 0.5 Eos # (Auto) 0.2 Baso # (Auto) 0.0 Sodium 136 Potassium 4.3 Chloride 104 Carbon Dioxide 29 Anion Gap 7.3 BUN 7 L D Creatinine 0.80 Estimated Creat Clear 123 Estimated GFR 101 Est GFR ( Amer) 122 Glucose 101 H POC Glucose 84 101 Calcium 8.7 Phosphorus 3.7 Magnesium 2.0 Total Bilirubin 0.8 AST 58 D ALT 66 D Alkaline Phosphatase 66 Total Protein 6.2 L Albumin 3.8 D Globulin 2.4 Albumin/Globulin Ratio 1.6 DS: Diagnosis Discharge Diagnosis (1) Chest pain: Status: Acute Code(s): R07.9 - Chest pain, unspecified Qualifiers: Chest pain type: unspecified Qualified Code(s): R07.9 - Chest pain, unspecified (2) LLQ abdominal pain: Status: Acute Code(s): R10.32 - Left lower quadrant pain (3) Anxiety: Status: Acute Code(s): F41.9 - Anxiety disorder, unspecified (4) Dysfunctional grieving: Status: Acute Code(s): F43.21 - Adjustment disorder with depressed mood (5) Alcohol consumption of more than two drinks per day: Status: Acute Code(s): Z78.9 - Other specified health status (6) Pancreatitis: Status: Acute Code(s): K85.90 - Acute pancreatitis without necrosis or infection, unspecified Qualifiers: Chronicity: acute Pancreatitis type: unspecified pancreatitis type Acute pancreatitis complication: unspecified Qualified Code(s): K85.90 - Acute pancreatitis without necrosis or infection, unspecified Meds Home Medications and Allergies Home Medications ?Medication ?Instructions ?Recorded ?Confirmed ?Type lisdexamfetamine 30 mg capsule 30 mg PO DAILY 03/04/24 09/13/24 History (Vyvanse) lisinopril 20 mg tablet (Zestril) 20 mg PO DAILY 03/04/24 09/13/24 History montelukast 10 mg tablet 10 mg PO HS 03/04/24 09/13/24 History (Singulair) rosuvastatin 20 mg tablet (Crestor) 20 mg PO DAILY 03/04/24 09/13/24 History dicyclomine 10 mg capsule 10 mg PO TID #90 caps 05/12/24 09/13/24 Rx dextroamphetamine-amphetamine 10 10 mg PO DAILYP PRN ADHD Symptoms 09/13/24 09/13/24 History mg tablet (Adderall) fluoxetine 10 mg capsule 10 mg PO DAILY 09/13/24 09/13/24 History New Prescriptions to Start Prescriptions: Allergies Allergy/AdvReac Type Severity Reaction Status Date / Time No Known Allergies Allergy Verified 04/17/24 11:13 Discharge Plan Follow up Plan Prescriptions/Medication Reconciliation: No Action montelukast [Singulair] 10 mg tablet 10 mg PO HS lisinopril [Zestril] 20 mg tablet 20 mg PO DAILY lisdexamfetamine [Vyvanse] 30 mg capsule 30 mg PO DAILY rosuvastatin [Crestor] 20 mg tablet 20 mg PO DAILY dicyclomine 10 mg capsule 10 mg PO TID Qty: 90 12RF dextroamphetamine-amphetamine [Adderall] 10 mg tablet 10 mg PO DAILYP PRN (Reason: ADHD Symptoms) Patient Comments: Take 1 tablet by mouth once a day as needed for afternoon ADHD symptoms Refills at monthly appointments fluoxetine 10 mg capsule 10 mg PO DAILY Patient Discharge Instructions Patient Instructions: DI for Anxiety -- Adult, DI for Chronic Pain -- Adult, DI for Chest Pain Print Language: Serbian Providers Primary Care Provider: Aditi Sprague Admit Provider: Oumar Cook Attending Provider: Oumar Cook
[2024-09-14 10:36] LABS: Lipase 344 U/L (23-300)
[2024-09-14 12:00] VITALS: BP 134/80; PULSE 60; PULSE 67; RESP 16; TEMP 36.8; O2SAT 90
--- NOTE | 2024-09-14 12:26 | P.DS_ITS ---
<Statement entered by Félix Carballo MD - 09/14/24 17:13> Rounded on patient after nurse practitioner. Personally examined and interviewed patient. Agree with exam findings and care plan as documented. General Admission date:: 09/13/24 Discharge date: 09/14/24 HPI HPI HPI: Patient sitting up in bed resting comfortably Patient denies any abdominal pain, chest pain, shortness of breath. Patient states that he rested well last night. Discussed alcohol intake, patient states he drinks vodka and bourbon almost daily. He said that he sees [facility] for his anxiety medic ation and has an appointment to follow-up with them at discharge. He expresses interest in stopping drinking, states he knows it is a problem for him. Hospital Course Hospital Course Hospital Course: Mr. Tavarez is a 54-year-old male who came into the emergency department with complaints of chest pain. Cardiac workup was benign, but was found to have a lipase of greater than 24,000. He was admitted for further management pain and fluid resuscitation. Further cardiac workup was initiated upon admission, echo ultrasound showed normal EF of 55%, serial troponins were all negative. Patient has remained normotensive, denies any chest pain. Abdominal ultrasound performed today showing fatty liver, gallbladder sludge. Patient denies abdominal pain, chest pain, no tenderness to palpation. White count was 11.1 yesterday, is 7.2 today, no electrolyte abnormalities noted, kidney function wit hin normal limits. Repeat Lipase today is 344. Discussed with patient in depth the need to abstain from alcohol use and the effects that alcohol has on his health. Patient expresses great interest in quitting drinking alcohol, and states he has already made an appointment with his PCP who manages his anxiety. #Pancreatitis #Alcohol use disorder #Abdominal pain ?Patient was found to have pancreatitis upon admission. Initiation of fluids, n.p.o. diet, pain medicine as needed. Patient did well overnight no complaints of pain, denies nausea, has tolerated diet without issues. Discussed with patient meeting with peers support for further resources regarding alcohol use disorder. Patient expresses the want to quit drinking, states that he has appointment with the [facility]. ?Patient able to tolerate a regular diet today for lunch. Denies nausea, vomiting, diarrhea, abdominal pain. #Chest pain ?Patient initially presented to the emergency room complaining of chest pain, serial troponins were negative, echo shows normal EF of 55%. Continue patient's home medication for hypertension, hyperlipidemia. Total time spent on discharge 28 minutes in counseling, documentation, chart review, and direct care with patient Exam Data for Last 24 hours Vital signs and Labs for Last 24 Hours: Temp Pulse Resp BP Pulse Ox O2 Del Method 98.2 F 67 16 134/80 90 L Room Air 09/14/24 12:00 09/14/24 12:00 09/14/24 12:00 09/14/24 12:00 09/14/24 12:09/14/24 12:00 Laboratory Results - last 24 hr 09/13/24 15:22: POC Glucose 84 09/14/24 05:48: WBC 7.2 D, RBC 4.07 L, Hgb 12.4 L, Hct 38.0 L, MCV 93.4, MCH 30.5, MCHC 32.6, RDW 12.5, Plt Count 299, MPV 9.1, Neut % (Auto) 48.8, Lymph % (Auto) 39.5, [place] % (Auto) 7.5, Eos % (Auto) 3.3, Baso % (Auto) 0.6, Neut # (Auto) 3.5, Lymph # (Auto) 2.8, [place] # (Auto) 0.5, Eos # (Auto) 0.2, Baso # (Auto) 0.0, Sodium 136, Potassium 4.3, Chloride 104, Carbon Dioxide 29, Anion Gap 7.3, BUN 7 L D, Creatinine 0.80, Estimated Creat Clear 123, Estimated GFR 101, Est GFR ( Amer) 122, Glucose 101 H, Calcium 8.7, Phosphorus 3.7, Magnesium 2.0, Total Bilirubin 0.8, AST 58 D, ALT 66 D, Alkaline Phosphatase 66, Total Protein 6.2 L, Albumin 3.8 D, Globulin 2.4, Albumin/Globulin Ratio 1.6, Lipase 478 H 09/14/24 10:20: Lipase 344 H I & O for Last 24 hours: Intake & Output 09/11/24 09/12/24 09/13/24 09/14/24 23:59 23:59 23:59 23:59 Intake Total 2620 / 3600 980 / 980 Output Total 0 / 0 2 / 2 Balance 2620 / 3600 978 / 978 Weight 80.087 kg 82.554 kg Constitutional Constitutional: no acute distress *Routine HEENT Exam Head: Present normocephalic Eye: Present EOMI and PERRL ENT: Present mucous membranes moist *Routine Neck Exam Neck: Present supple; Absent lymphadenopathy *Routine Respiratory Exam Respiratory: Present CTA bilaterally *Routine Cardiovascular Exam Cardiovascular: Present RRR *Routine Abdominal Exam Abdominal: Present soft and normoactive bowel sounds; Absent tenderness *Routine Extremities Exam Extremities: Absent cyanosis, clubbing or edema *Routine Skin Exam Skin: Present warm; Absent rash *Routine Neurological Exam Neurological: Present alert and oriented X3 Results Data Completed and Pending Labs on day of discharge: Labs from last 24 hours 09/14/24 09/14/24 09/13/24 10:20 05:48 15:22 WBC 7.2 D RBC 4.07 L Hgb 12.4 L Hct 38.0 L MCV 93.4 MCH 30.5 MCHC 32.6 RDW 12.5 Plt Count 299 MPV 9.1 Neut % (Auto) 48.8 Lymph % (Auto) 39.5 [place] % (Auto) 7.5 Eos % (Auto) 3.3 Baso % (Auto) 0.6 Neut # (Auto) 3.5 Lymph # (Auto) 2.8 [place] # (Auto) 0.5 Eos # (Auto) 0.2 Baso # (Auto) 0.0 Sodium 136 Potassium 4.3 Chloride 104 Carbon Dioxide 29 Anion Gap 7.3 BUN 7 L D Creatinine 0.80 Estimated Creat Clear 123 Estimated GFR 101 Est GFR ( Amer) 122 Glucose 101 H POC Glucose 84 Calcium 8.7 Phosphorus 3.7 Magnesium 2.0 Total Bilirubin 0.8 AST 58 D ALT 66 D Alkaline Phosphatase 66 Total Protein 6.2 L Albumin 3.8 D Globulin 2.4 Albumin/Globulin Ratio 1.6 Lipase 344 H 478 H DS: Diagnosis Discharge Diagnosis (1) Chest pain: Status: Acute Code(s): R07.9 - Chest pain, unspecified Qualifiers: Chest pain type: unspecified Qualified Code(s): R07.9 - Chest pain, unspecified (2) LLQ abdominal pain: Status: Acute Code(s): R10.32 - Left lower quadrant pain (3) Anxiety: Status: Acute Code(s): F41.9 - Anxiety disorder, unspecified (4) Dysfunctional grieving: Status: Acute Code(s): F43.21 - Adjustment disorder with depressed mood (5) Alcohol consumption of more than two drinks per day: Status: Acute Code(s): Z78.9 - Other specified health status (6) Pancreatitis: Status: Acute Code(s): K85.90 - Acute pancreatitis without necrosis or infection, unspecified Qualifiers: Acute pancreatitis complication: unspecified Chronicity: acute Pancreatitis type: unspecified pancreatitis type Qualified Code(s): K85.90 - Acute pancreatitis without necrosis or infection, unspecified Meds Home Medications and Allergies Home Medications ?Medication ?Instructions ?Recorded ?Confirmed ?Type lisdexamfetamine 30 mg capsule 30 mg PO DAILY 03/04/24 09/13/24 History (Vyvanse) lisinopril 20 mg tablet (Zestril) 20 mg PO DAILY 03/0409/13/24 History montelukast 10 mg tablet 10 mg PO HS 03/04/24 5 History (Singulair) rosuvastatin 20 mg tablet (Crestor) 20 mg PO DAILY 07/2309/13/24 History dicyclomine 10 mg capsule 10 mg PO TID #90 caps 09/13/24 Rx dextroamphetamine-amphetamine 10 10 mg PO DAILYP PRN A DHD Symptoms 09/13/24 09/13/24 History mg tablet (Adderall) fluoxetine 10 mg capsule 10 mg PO DAILY 09/13/2408/30 History New Prescriptions to Start Prescriptions: Allergies Allergy/AdvReac Type Severity Reaction Status Date / Time No Known Allergies Allergy Verified 04/17/24 11:13 Discharge Plan Disposition Patient Disposition: Home, Self-Care Condition: Fair Discharge Order Discharge Orders: Discharge Order (Routine); Ordered 09/14/24 Ordered By: Ramya Yang Follow up Plan Follow up with: Aditi Sprague APRN [Primary Care Provider, Medical] - 09/21/24 9:30 am Referral Note: 1 week Prescriptions/Medication Reconciliation: Continued montelukast [Singulair] 10 mg tablet 10 mg PO HS lisinopril [Zestril] 20 mg tablet 20 mg PO DAILY lisdexamfetamine [Vyvanse] 30 mg capsule 30 mg PO DAILY rosuvastatin [Crestor] 20 mg tablet 20 mg PO DAILY dicyclomine 10 mg capsule 10 mg PO TID Qty: 90 12RF dextroamphetamine-amphetamine [Adderall] 10 mg tablet 10 mg PO DAILYP PRN (Reason: ADHD Symptoms) Patient Comments: Take 1 tablet by mouth once a day as needed for afternoon ADHD symptoms Refills at monthly appointments fluoxetine 10 mg capsule 10 mg PO DAILY Problem Reconciliation Problems Reviewed?: Yes Patient Discharge Instructions ACTIVITY: Continue current activity DIET: continue same diet Patient Instructions: Acute Pancreatitis, DI for Anxiety -- Adult, DI for Chest Pain Print Language: Bulgarian Providers Primary Care Provider: Aditi Sprague Admit Provider: Oumar Cook Attending Provider: Oumar Cook
--- NOTE | 2024-09-15 15:04 | SW/DCPLANNER ---
Spoke with patient on the phone. Patient stated that he is doing well. Patient stated that he is aware of his upcoming appointment. Patient stated that he was not prescribed any new medicine. Patient stated that he has no concerns or questions at this time. Vish Phillip
== END 2024-09-14 14:33 | disposition home or self-care (01) ==
LOC: ER 04:58 → 2ND 06:41
PROVIDERS: Internal Medicine Adolescent Medicine; Nurse Practitioner Family; Admitting Provider Student in an Organized Health Care Education/Training Program; Emergency Provider Emergency Medicine; PCP Nurse Practitioner Family; Visit Provider Student in an Organized Health Care Education/Training Program
DX: R07.9 Chest pain, unspecified (principal); R10.32 Left lower quadrant pain; F41.9 Anxiety disorder, unspecified; F43.21 Adjustment disorder with depressed mood; F10.90 Alcohol use, unspecified, uncomplicated; K85.90 Acute pancreatitis without necrosis or infection, unspecified; R79.89 Other specified abnormal findings of blood chemistry; K76.0 Fatty (change of) liver, not elsewhere classified; I10 Essential (primary) hypertension; E78.5 Hyperlipidemia, unspecified; K21.9 Gastro-esophageal reflux disease without esophagitis; K58.9 Irritable bowel syndrome, unspecified; Z87.891 Personal history of nicotine dependence; Z79.899 Other long term (current) drug therapy; Z82.49 Family history of ischemic heart disease and other diseases of the circulatory system
CPT/HCPCS: 96374; 96375; 36415; 71045; 76705; 80053; 82962; 82977; 83690; 83735; 84100; 84484; 85025; 85378; 86803; 87389; 93005; 93306; G0378; J2270; J2405; J7120